=== PATIENT | female | born 1985 | race African-American/Black ===

== ENCOUNTER 2021-10-31 12:29 | Emergency (ER) | payer OTHER, MEDICAID ==
[~2021-10-31] VITALS: Ht 162.6 cm; Wt 102.1 kg
[2021-10-31] MEDS ORDERED: LINZESS72 MCG PO (13:11)
[2021-10-31] MEDS ORDERED: PREDNISONE 20 M20 MG PO (13:33)
[2021-10-31] MEDS ORDERED: EPIPEN 2-P0.3 MG/0.3 IM (13:34)
[2021-10-31] MEDS ORDERED: NYSTATIN100000 UNI PO (13:35)
[2021-10-31 13:54] VITALS: BP 121/70
== END 2021-10-31 14:01 | disposition home or self-care (01) ==
LOC: M.ERS 12:29
DX: B37.9 Candidiasis, unspecified (principal); R60.0 Localized edema; Z79.899 Other long term (current) drug therapy; Z91.02 Food additives allergy status